=== PATIENT | male | born 1955 | race Caucasian/White ===

== ENCOUNTER 2019-04-07 09:02 | Inpatient (IN) | payer BC ==
[~2019-04-07] VITALS: Ht 182.9 cm; Wt 69.6 kg
[2019-04-07 09:36] LABS: BASOPHILS % 0.6 % (0.0-1.0); EOSINOPHILS # (AUTO) 0.1 (0.0-0.4); EOSINOPHILS % 1.3 % (0.0-6.0); HEMATOCRIT 41.2 % (38.2-49.6); HEMOGLOBIN 14.5 g/dL (14.0-18.0); LYMPHOCYTES # (AUTO) 3.1 (1.0-3.2); LYMPHOCYTES % 45.1 % (18.0-39.1); MEAN CORPUSCULAR HEMOGLOBIN 31.7 pg (28-32); MEAN CORPUSCULAR HGB CONC 35.2 g/dL (31-35); MONOCYTES # (AUTO) 0.5 (0.2-0.8); MONOCYTES % 7.1 % (4.4-11.3); NEUTROPHILS # (AUTO) 3.1 (2.1-6.9); NEUTROPHILS % 45.5 % (38.7-80.0); PLATELET COUNT 392 x10e3/uL (140-360); RED BLOOD COUNT 4.58 x10e6/uL (4.3-5.7); RED CELL DISTRIBUTION WIDTH 12.1 % (11.7-14.4)
[2019-04-07 09:45] LABS: INR 0.9; PARTIAL THROMBOPLASTIN TIME 29.3 seconds (23.8-35.5); PROTHROMBIN TIME 12.6 seconds (11.9-14.5)
[2019-04-07 09:53] LABS: ALANINE AMINOTRANSFERASE 37 IU/L (0-55); ALBUMIN 4.2 g/dL (3.5-5.0); ALBUMIN/GLOBULIN RATIO 1.4 (0.8-2.0); ALKALINE PHOSPHATASE 85 IU/L (40-150); BLOOD UREA NITROGEN 15 mg/dL (7-26); BUN/CREATININE RATIO 17 (6-25); CALCIUM 9.9 mg/dL (8.4-10.2); CARBON DIOXIDE 23 mmol/L (22-29); CHLORIDE 100 mmol/L (98-107); EST GLOMERULAR FILTRATION RATE > 60 ML/MIN (60-); GLUCOSE 107 mg/dL (74-118); SODIUM 133 mmol/L (136-145)
--- NOTE | 2019-04-07 10:02 | Diagnostic Imaging Report ---
History: Left arm paralysis Comparison studies: None Technique: Axial images were obtained from the skull base to the vertex. Coronal and sagittal reconstructions obtained from the axial data. Dose modulation, iterative reconstruction, and/or weight based adjustment of the mA/kV was utilized to reduce the radiation dose to as low as reasonably achievable. Intravenous contrast: None Findings: Scalp/skull: No abnormalities. No fractures, blastic or lytic lesions. Extra-axial spaces: No masses. No fluid collections. Brain sulci: Appropriate for age. Ventricles: Normal in size and configuration. No hydrocephalus. Parenchyma: Old less than 3 mm lacunar insults are centered in the right subinsular region (series 901, image 42) Otherwise, no abnormal densities, no masses, hemorrhage, acute or chronic cortical vascular insults. Sellar/suprasellar region: No abnormalities Craniocervical junction: Patent foramen magnum. No Chiari one malformation. Additional findings: Focal atherosclerotic calcifications in the carotid siphons, distal left vertebral and proximal basilar artery. IMPRESSION: 1. No acute intracranial abnormalities to explain patient's symptoms 2. Old right subinsular lacunar insults. 3. A brain MRI may be necessary for further evaluation if there is need for further imaging. Signed by: Dr. Gerard Geller M.D. on 04/07/2019 9:59 AM
--- NOTE | 2019-04-07 10:06 | Diagnostic Imaging Report ---
History: Left arm paralysis Comparison studies: None Technique: Axial images were obtained through the cervical region.. Coronal and sagittal images reconstructed from the axial data. Dose modulation, iterative reconstruction, and/or weight based adjustment of the mA/kV was utilized to reduce the radiation dose to as low as reasonably achievable. Intravenous contrast: None Findings: Fractures: None. Soft tissues: No gross abnormalities. Atlantoaxial articulation: Intact. Alignment: Normal lordosis. No scoliosis. Cervicomedullary junction: No abnormalities. The foramen magnum is patent. Vertebrae: No infection or neoplasm. Degenerative changes: The discs are normal in height from C2 through T1. Foraminal stenosis is moderate right at C3-4 due to uncoarthrosis, mild left at C4-5 due to moderate facet arthrosis, moderate right at C5-6 due to facet and uncoarthrosis Incidental atherosclerotic calcifications of the carotid bulbs. IMPRESSION: 1. No acute abnormalities. 2. Cannot adequately evaluate for ligament, spinal cord and or vascular abnormalities. 3. Degenerative foraminal stenosis from C3 through C6 as described Signed by: Dr. Gerard Geller M.D. on 04/07/2019 10:03 AM
--- NOTE | 2019-04-07 10:22 | NUR ---
MACKENZIE ANTONYCONCENTRATOR OPERATOR AWARE WE ARE REQUESTING MRI
[2019-04-07] MEDS ORDERED: DIPHENHYDRAMINE HCL INJ 50 MG/ML VIAL IV PRN (10:30)
[2019-04-07] MEDS ORDERED: HYDROCODONE/APAP 7.5MG-325MG 1 EA TAB PO PRN (10:30)
[2019-04-07] MEDS ORDERED: ONDANSETRON HCL INJ 2MG/ML 2ML 2 MG/ML VIAL IV PRN (10:30)
[2019-04-07] MEDS ORDERED: IBUPROFEN 200 MG TAB PO PRN (10:30)
[2019-04-07] MEDS ORDERED: ACETAMINOPHEN 325 MG TAB PO PRN (10:30)
--- NOTE | 2019-04-07 10:32 | NUR ---
DR. ARRINGTON AT BEDSIDE RE-EVALUATING PATIENT AND UPDATING HIM ON STATUS
--- NOTE | 2019-04-07 10:45 | NUR ---
DR. HUGGINS AWARE OF BP 160'S, NO MEDS ORDERED
--- NOTE | 2019-04-07 10:58 | NUR ---
HARPAL Griggs, CALLED AND MADE AWARE PATIENT IS GOING TO MRI BEFORE GOING TO HIS ROOM
[2019-04-07 12:32] VITALS: BP 181/90
[2019-04-07] MEDS ORDERED: IBUPROFEN 400 MG TAB PO PRN (12:45)
--- NOTE | 2019-04-07 13:50 | NUR ---
Recvd patient from ER after MRI, Patient resting in bed, AAOx3. Denies any pain, not in any distress
[2019-04-07] MEDS ORDERED: HYDRALAZINE HCL 20 MG/ML VIAL IV PRN (15:15)
[2019-04-07 16:00] VITALS: BP 142/90
--- NOTE | 2019-04-07 16:16 | NUR ---
Call recvd with new order from Dr Villarreal to cancel consult with Dr Greco
[2019-04-07 16:25] VITALS: BP 181/90
[2019-04-07] MEDS ORDERED: MOTRIN200 MG PO (16:50)
[2019-04-07] MEDS: FAMOTIDINE 20 MG/2 ML VIAL IV SCH (17:00)
[2019-04-07] MEDS: ENOXAPARIN SOD INJ 40 MG/0.4 ML SYR SC SCH (17:29)
--- NOTE | 2019-04-07 18:18 | NUR ---
patient ambulating in [address], denies any pain
--- NOTE | 2019-04-07 18:27 | Diagnostic Imaging Report ---
MRI BRAIN WO HISTORY: Left-sided weakness COMPARISON: Head CT 04/07/2019 TECHNIQUE: Sagittal T2, axial T2, axial T1, axial T2/FLAIR, axial gradient echo (or susceptibility weighted), coronal T2/FLAIR, and axial diffusion weighted MR images of the brain were obtained without contrast. Motion artifacts obscure some details. DISCUSSION: Scalp/bone marrow: Unremarkable. Brain sulci: Appropriate for patient's age. Ventricles: Normal in size and configuration. No hydrocephalus. Extra-axial spaces: No masses or fluid collections. Parenchyma: A small focus of diffusion restriction (bright on DWI, dark on ADC) in the right tucker radiata is compatible with acute ischemia. No other diffusion restricting abnormalities are seen. Scattered T2/FLAIR hyperintense foci throughout the supratentorial white matter are likely chronic microvascular ischemic changes. Otherwise, no mass or hemorrhage. Vessels: Normal flow voids in major arteries and veins. Sellar/Suprasellar region: No abnormalities. Craniocervical junction: No abnormalities. Incidental findings: None. IMPRESSION: 1. Small focal area of acute ischemia on the right tucker radiata. 2. Mild supratentorial chronic microvascular ischemic change. Signed by: Dr. Jeff Alex M.D. on 04/07/2019 6:24 PM
--- NOTE | 2019-04-07 18:35 | Diagnostic Imaging Report ---
MRI SPINE CERVICAL WO HISTORY: Left-sided weakness COMPARISON: Cervical spine CT 04/07/2019 TECHNIQUE: Sagittal T1, sagittal T2, sagittal inversion recovery, axial T2 and axial T1 weighted MR images of the cervical spine were obtained without intravenous contrast. DISCUSSION: Alignment: Normal lordosis. No scoliosis. Vertebrae: No definite evidence for fractures, infection, or neoplasm. Cervicomedullary junction: No abnormalities. Spinal cord: Normal in signal and morphology from the foramen magnum through T3-T4. Soft tissues: No signal abnormalities. Mild multilevel disc degeneration is present. C2-C3: Patent canal and foramina. C3-C4: Mild bilateral foraminal stenoses due to uncovertebral and facet arthrosis. No significant canal stenosis. C4-C5: Mild right and mild to moderate left foraminal stenoses due to uncovertebral and facet arthrosis. No significant canal stenosis. C5-C6: Mild canal stenosis due to posterior disc osteophyte complex and ligamentum flavum thickening. Moderate to severe right and mild left foraminal stenoses due to uncovertebral and facet arthrosis. C6-C7: Mild canal stenosis due to posterior disc osteophyte complex and ligamentum flavum thickening. Mild left foraminal stenosis due to uncovertebral and facet arthrosis. No significant right foraminal stenosis. C7-T1: Patent canal and foramina. IMPRESSION: 1. Mild multilevel disc degeneration. 2. Mild degenerative canal stenoses at C5-C6 and C6-C7. 3. Multilevel bilateral degenerative foraminal stenoses - moderate to severe on the right at C5-C6. Signed by: Dr. Jeff Alex M.D. on 04/07/2019 6:32 PM
--- NOTE | 2019-04-07 19:30 | NUR ---
Walking rounds done. Patient A&Ox4, respirations even & unlabored. Patient has left arm weakness. Denies any chest pain or SOB. Patient denies any needs at this time, call light within reach and bed set to lowest position.
[2019-04-07 20:00] VITALS: BP 135/96
[2019-04-07 20:33] VITALS: BP 181/90
--- NOTE | 2019-04-07 20:49 | Consultation ---
DATE OF CONSULTATION: 04/07/2019 Neurology Consult Note HISTORY OF PRESENT ILLNESS: The patient is a 63-year-old right-hand dominant man with known hyperlipidemia, admitted to [facility] on April 07, 2019 with left arm weakness. According to the patient, on the morning prior to admission, the patient was at home when he experienced the rather sudden onset of dizziness, which he further described as a vertiginous sensation, as well as tingling along the left hand and arm. Furthermore, Mr. Bird reports numbness in the tips of all fingers of the left hand. Concerned he was having a transient ischemic attack, the patient had his son drive him to a local pharmacy where his blood pressure was found to be in the 140s/90s mmHg. Rather than proceeding to the nearest emergency center for further evaluation, the patient returned home. Over the next 24 hours, he noted gradually worsening weakness as well as limited dexterity of the left hand and arm. On April 07, 2019, the patient presented to the emergency center at [facility] for further evaluation of his symptoms. Upon arrival in the emergency center, the patient was afebrile with a blood pressure of 161/93 mmHg and a pulse of 78 beats per minute. His neurological examination was significant for weakness of the left arm with strength documented as being approximately 2/5. No other focal deficits were noted. While in the emergency center, a CT of the brain without contrast was performed. There is no evidence of recent large territorial ischemia or hemorrhage. However, remote lacunar infarcts were observed in the right subinsular region. Mr. Bird was admitted to [facility] as an inpatient for further evaluation and treatment of his symptoms. The patient does not report neck pain or stiffness associated with the above symptoms. He does not report recent trauma or injury to the neck or left arm. The patient does not take anti-platelet or anticoagulant medication on a daily basis. REVIEW OF SYSTEMS: Weakness of the left hand and arm, numbness and tingling of the left hand and arm, neck and low back stiffness (chronic). PAST MEDICAL HISTORY: Hyperlipidemia, cervical spine injury several years ago, multiple broken bones related to trauma. PAST SURGICAL HISTORY: A plate was placed in the patient's right forearm to repair an ulnar fracture. PAST HOSPITALIZATIONS: Surgeries/procedures as listed. FAMILY MEDICAL HISTORY: The patient's paternal grandmother from bone cancer. His father is alive and has valvular heart disease. The patient's mother is alive. She has breast cancer with metastatic lesions to the bones and brain. Mr. Bird has 1 sibling, a sister, who is alive. She is a breast cancer survivor. The patient has two adopted children. SOCIAL HISTORY: The patient is . He lives with his , two children, and three grand children. The patient works as a pharmacist at [employer]. The patient reports using smokeless tobacco daily. There is no reported current or prior alcohol or recreational drug use. HOME MEDICATIONS: Afrin nasal spray as needed, ibuprofen as needed, Fioricet as needed. HOSPITAL MEDICATIONS: Tylenol, Benadryl, Lovenox, Pepcid, [place], Motrin, Zofran. ALLERGIES: PENICILLIN. NO KNOWN FOOD ALLERGIES. THE PATIENT DOES REPORT A LATEX ALLERGY. NO ALLERGIES TO IODINE OR OTHER CONTRAST MATERIALS. VITAL SIGNS: Height 72 inches, weight 154 pounds, BMI 20.9 kg/m2, blood pressure 181/90 mmHg, pulse 57 beats per minute, respiratory rate 18 breaths per minute, and oxygen saturation 98% on room air. GENERAL: The patient is awake and alert, does not appear distressed. HEENT: Normocephalic, atraumatic. Pupils are equal, round, and reactive to light. Moist mucous membranes. NECK: Supple. No appreciable thyromegaly. No appreciable carotid bruits. CARDIOVASCULAR: S1, S2, regular rate and rhythm. No murmurs, rubs, or gallops. RESPIRATORY: Clear to auscultation bilaterally. No wheezes, rhonchi, or rales. EXTREMITIES: The skin is warm and dry. No clubbing, cyanosis, or edema. The posterior tibial and dorsalis pedis pulses are 2+ and symmetric. SKIN: No rashes or lesions. NEUROLOGIC: Memory/Attention: The patient is awake and alert, oriented to person, place, time, and situation. Cranial Nerves: Cranial nerve I - not tested. Cranial nerve II, III, IV, and - pupils are equal and round, reactive briskly to light (from 4 mm to 2 mm). Extraocular movements intact. No nystagmus. Cranial nerve V - sensation to light touch and pinprick is intact in the bilateral V1 through V3 distributions. Strength in the temporalis and masseter muscles are within normal limits. Cranial nerve VII - the face is symmetric as are all facial movements. Strength is within normal limits. Cranial nerve VIII - hearing is intact to finger rub bilaterally. Cranial nerve XI, X - the soft palate elevates equally and symmetrically. Cranial nerve XI - normal strength of the bilateral sternocleidomastoid and trapezius muscles. Cranial nerve XII - the tongue protrudes midline and moves symmetrically from [id number]. Strength: Bulk is normal. Strength is 5/5 in the bilateral deltoids, biceps, triceps, wrist flexors and extensors, finger flexors and extensors, intrinsic hand muscles, hip flexors, knee flexors and extensors, ankle dorsiflexion and plantar flexion, and intrinsic foot muscles except as follows: There is flaccid paresis in all muscles of the left arm. Strength is grossly 1 to 2/5. Tone is normal in the other 3 extremities. DTRs: Deep tendon reflexes are 2+ and symmetric at the triceps, biceps, brachioradialis, patellas, and Achilles. Plantar responses are flexor bilaterally. Sensation: Sensation is mildly diminished to light touch and pinprick over the left arm. Cerebellar: Fyxtyy-jbwd-byohdv and heel-doyle movements are intact without dysmetria or other impairment except as follows: Cerebellar function cannot be assessed in the left arm due to weakness. Gait: Deferred. Speech: Spontaneous speech is normal without appreciable dysarthria or aphasia. Repetition is intact. Involuntary movements: None. Pronator drift: As per motor exam. LABORATORY DATA: Comprehensive metabolic panel is significant only for a mildly decreased sodium of 133. The CBC with differential and platelets reveals white blood cell count of 6.89 with a right shift with 45.5% neutrophils, 45.1% lymphocytes, 7.1% monocytes, 1.3% eosinophils, and 0.6% basophils. The hemoglobin and hematocrit are 14.5 and 41.2, respectively. The platelet count is 392. A coagulation profile is within normal limits. DIAGNOSTIC STUDIES: Electrocardiogram, 04/07/2019: Normal sinus rhythm at 60 beats per minute. Possible left ventricular hypertrophy. CT of the brain, 04/07/2019: On my review, there is no evidence of recent large territorial ischemia or hemorrhage. Lacunar insults are seen in the right subinsular region. Cerebral volumes are appropriate for age. There are findings compatible with mild chronic small-vessel ischemic disease. MRI of the brain without contrast, 04/07/2019: A formal report is pending. On my review, there is acute ischemia in the subcortical right middle cerebral artery distribution, probably along the posterior limb of the internal capsule. Cerebral volumes are appropriate for age. There are findings compatible with mild chronic small vessel ischemic disease. MRI of the cervical spine without contrast, 04/07/2019: On my review, there is multilevel degenerative disk disease without significant spinal canal or neuroforaminal stenosis. ASSESSMENT AND PLAN: Mr. Bird is a 63-year-old right-hand dominant man with past medical history significant for hyperlipidemia, who presented to the emergency center at [facility] on the morning of April 07, 2019 with subacute weakness and sensory disturbance over the left hand and arm secondary to a lacunar stroke in the subcortical right middle cerebral artery distribution. The patient's neurological examination is significant for [id number] weakness of the muscles in the left hand and arm as well as mild sensory loss in the left hand and arm. The patient's laboratory data and other diagnostic studies have been reviewed and are documented above. RECOMMENDATIONS: Are as follows: 1. A lipid panel and hemoglobin A1c will be ordered. 2. Bilateral carotid artery ultrasound with Doppler will be ordered. 3. An echocardiogram will be ordered. 4. Aspirin 325 mg by mouth daily for stroke prophylaxis will be prescribed. 5. Allow permissive hypertension for 24-48 hours post stroke. P.r.n. hydralazine will be ordered. Physicians may begin to normalize the blood pressure on April 08, 2019. 6. The goal total cholesterol is less than 200 with an LDL of less than 70. Follow up the results of the lipid panel and prescribe statin as appropriate. 7. A goal hemoglobin A1c is less than 7.0. Follow up the results of the hemoglobin A1c. Tight glycemic control is recommended while the patient is hospitalized. 8. Physical therapy consultation will be ordered. 9. GI prophylaxis with Pepcid 20 mg by mouth twice daily with meals. Deep venous thrombosis prophylaxis with Lovenox 40 mg subcutaneously daily. 10. Defer treatment of the remaining medical comorbidities to the primary and other services following the patient. Thank you for this consultation. I will continue to follow the patient while he remains in the hospital. TIME SPENT: 70 minutes. Bhakti Villarreal MD CP/CONNIE /[id number] MTDOdilia
[2019-04-08] VITALS (8 sets, daily range): BP systolic 142–178; BP diastolic 83–105
[2019-04-08 06:38] LABS: CHOL/HDL RATIO 4.5 (3.9-4.7)
--- NOTE | 2019-04-08 07:08 | NUR ---
RECEIVED PATIENT RESTING IN BED. RESPIRATIONS EVEN AND UNLABORED, NO ACUTE DISTRESS NOTED. PATIENT DENIES PAIN OR DISCOMFORT. CALL LIGHT WITHIN REACH. BED IN THE LOWEST POSITION.
[2019-04-08] MEDS: FAMOTIDINE 20 MG/2 ML VIAL IV SCH (08:13)
[2019-04-08] MEDS ORDERED: ASPIRIN 325 MG TAB EC PO SCH (09:00)
[2019-04-08] MEDS ORDERED: ONDANSETRON HCL 4 MG ORAL DISINTEGRATING TAB PO PRN (10:00)
[2019-04-08] MEDS ORDERED: FAMOTIDINE 20 MG TAB PO SCH (16:30)
[2019-04-08] MEDS: ENOXAPARIN SOD INJ 40 MG/0.4 ML SYR SC SCH (16:33)
--- NOTE | 2019-04-08 19:14 | NUR ---
REPORT GIVEN TO ONCOMING NURSE. WALKING ROUNDS DONE. PATIENT IS RESTING IN BED. CALL LIGHT WITHIN REACH. BED IN THE LOWEST POSITION.
--- NOTE | 2019-04-08 19:35 | NUR ---
PT IS RESTING IN BED. NO RESPIRATORY DISTRESS NOTED. BED IN THE LOWEST POSITION, LOCKED, AND CALL LIGHT WITHIN REACH. WILL CONTINUE TO MONITOR.
[2019-04-08] MEDS ORDERED: ATORVASTATIN CA20 MG PO (20:16)
[2019-04-08] MEDS ORDERED: LISINOPRIL10 MG PO (20:17)
[2019-04-08] MEDS ORDERED: ASPIRIN325 MG PO (20:18)
--- NOTE | 2019-04-08 20:29 | NUR ---
PT WAS WHEELED OF THE UNIT WITH ALL OF HIS BELONGS. NO RESPIRATORY DISTRESS NOTED. PT EDUCATED ON MEDICATION COMPLIANCE AND DISCHARGE INSTRUCTIONS. PER PT DISCHARGE INSTRUCTION UNDERSTOOD.
== END 2019-04-08 20:29 | disposition home or self-care (01) | DRG 66 ==
LOC: ER 09:02 → ERHOLD 10:20 → MED/SURG3 12:30
DX: I63.9 Cerebral infarction, unspecified (principal); I10 Essential (primary) hypertension; E78.5 Hyperlipidemia, unspecified; M54.5 Low back pain
CPT/HCPCS: 36415; 70450; 70551; 72125; 72141; 80053; 80061; 83036; 85025; 85610; 85730; 93005; 93306; 93880; 96372; 99284; J1650

== ENCOUNTER 2019-04-25 14:00 | Outpatient (RCR) | payer BC ==
[~2019-04-25 14:00] MED LIST: ASPIRIN325 MG PO; ATORVASTATIN CA20 MG PO; LISINOPRIL10 MG PO; MOTRIN200 MG PO
== END 2019-04-26 ==
LOC: OT 14:00
PROVIDERS: ATTEND Psychiatry & Neurology Clinical Neurophysiology
DX: R53.1 Weakness (principal); R27.9 Unspecified lack of coordination

== ENCOUNTER 2019-05-23 14:00 | Outpatient (RCR) | payer BC | END 2019-05-26 | LOC: OT 14:00 | PROVIDERS: ATTEND Psychiatry & Neurology Clinical Neurophysiology | DX: I69.834 Monoplegia of upper limb following other cerebrovascular disease affecting left non-dominant side (principal); R53.1 Weakness; R27.9 Unspecified lack of coordination ==

== ENCOUNTER 2019-06-13 16:00 | Outpatient (RCR) | payer BC | END 2019-06-26 | LOC: OT 16:00 | PROVIDERS: ATTEND Psychiatry & Neurology Clinical Neurophysiology | DX: I69.834 Monoplegia of upper limb following other cerebrovascular disease affecting left non-dominant side (principal); R53.1 Weakness; R27.9 Unspecified lack of coordination | CPT/HCPCS: 97139 ==

== ENCOUNTER → 2020-11-24 | Outpatient (CLI) | payer OTHER ==
[~2020-11-24] MED LIST changes: +COVID-19 VACC, MRNA(MODERNA)/PF 100 MCG/0.5 ML VIAL IM ONE
== END ==
LOC: VACCPMC 13:42
DX: Z23 Encounter for immunization (principal); Z20.828 Contact with and (suspected) exposure to other viral communicable diseases

== ENCOUNTER → 2020-12-29 | Outpatient (CLI) | payer OTHER | LOC: VACCPMC 10:38 | DX: Z23 Encounter for immunization (principal); Z20.822 Contact with and (suspected) exposure to COVID-19 | CPT/HCPCS: 0012A; 91301 ==

== ENCOUNTER → 2021-02-03 | Outpatient (CLI) | payer OTHER ==
[~2021-02-03] MED LIST changes: -COVID-19 VACC, MRNA(MODERNA)/PF 100 MCG/0.5 ML VIAL IM ONE
== END ==
LOC: MRI 10:52
PROVIDERS: ATTEND Specialist
DX: S83.222A Peripheral tear of medial meniscus, current injury, left knee, initial encounter (principal); M17.12 Unilateral primary osteoarthritis, left knee

== ENCOUNTER → 2021-02-24 | Day surgery (SDC) | payer OTHER ==
[~2021-02-24] MED LIST changes: +ASPIRIN81 MG PO; +ATROPINE SULFATE 1 MG/ML VIAL ONE; +BUPIVACAINE HCL 0.5% INJ 30 ML VIAL INJ ONE; +CEFAZOLIN SOD 1 GM/NS 50ML 100 ML IV ONE; +DEXAMETHASONE SOD PHOS INJ 4 MG/ML VIAL ONE; +EPHEDRINE SULFATE INJ 50 MG/ML VIAL ONE; +FENTANYL CITRATE/PF 100MCG/2 ML INJ ONE; +IBUPROFEN 800MG/ 200ML 200 ML IV ONE; +LIDOCAINE HCL 2% LOCAL INJ 5 ML SDV VIAL INJ ONE; +MEPERIDINE HCL INJ 25 MG/ML VIAL ONE; +MIDAZOLAM HCL 2 MG/2 ML VIAL ONE; +ONDANSETRON HCL INJ 2MG/ML 2ML 2 MG/ML VIAL ONE; +PROPOFOL IV EMULSION 10 MG/ML 20 ML VIAL ONE; +SEVOFLURANE INHAL SOLN 250 ML PEN BTL ONE
[2021-02-24 09:25] VITALS: BP 144/88
== END | disposition home or self-care (01) ==
LOC: OR 05:46
PROVIDERS: ATTEND Specialist
DX: S83.222A Peripheral tear of medial meniscus, current injury, left knee, initial encounter (principal); M17.12 Unilateral primary osteoarthritis, left knee; M22.42 Chondromalacia patellae, left knee; M71.22 Synovial cyst of popliteal space [Baker], left knee; I10 Essential (primary) hypertension; I69.334 Monoplegia of upper limb following cerebral infarction affecting left non-dominant side; E78.5 Hyperlipidemia, unspecified; X58.XXXA Exposure to other specified factors, initial encounter; Z88.0 Allergy status to penicillin; Z01.810 Encounter for preprocedural cardiovascular examination; Z01.812 Encounter for preprocedural laboratory examination; Z20.822 Contact with and (suspected) exposure to COVID-19; Z79.82 Long term (current) use of aspirin
CPT/HCPCS: 29881; 93005; J0461; J0690; J1100; J2001; J2175; J2250; J2405; J2704; J3010; U0002

== ENCOUNTER 2021-09-24 10:00 | Outpatient (RCR) | payer OTHER ==
[~2021-09-24 10:00] MED LIST changes: -ATROPINE SULFATE 1 MG/ML VIAL ONE; -BUPIVACAINE HCL 0.5% INJ 30 ML VIAL INJ ONE; -CEFAZOLIN SOD 1 GM/NS 50ML 100 ML IV ONE; -DEXAMETHASONE SOD PHOS INJ 4 MG/ML VIAL ONE; -EPHEDRINE SULFATE INJ 50 MG/ML VIAL ONE; -FENTANYL CITRATE/PF 100MCG/2 ML INJ ONE; -IBUPROFEN 800MG/ 200ML 200 ML IV ONE; -LIDOCAINE HCL 2% LOCAL INJ 5 ML SDV VIAL INJ ONE; -MEPERIDINE HCL INJ 25 MG/ML VIAL ONE; -MIDAZOLAM HCL 2 MG/2 ML VIAL ONE; -ONDANSETRON HCL INJ 2MG/ML 2ML 2 MG/ML VIAL ONE; -PROPOFOL IV EMULSION 10 MG/ML 20 ML VIAL ONE; -SEVOFLURANE INHAL SOLN 250 ML PEN BTL ONE
== END 2021-09-26 ==
LOC: PT 10:00
PROVIDERS: ATTEND Specialist
DX: M17.12 Unilateral primary osteoarthritis, left knee (principal)

== ENCOUNTER 2022-01-06 08:57 | Inpatient (IN) | payer BC, OTHER ==
[~2022-01-06] VITALS: Ht 182.9 cm; Wt 69.2 kg
[2022-01-06] MEDS ORDERED: SODIUM CHLORIDE 0.9% 1000ML 1,000 ML IV STA (09:16)
[2022-01-06 09:45] LABS: BASOPHILS # (AUTO) 0.1 (0.0-0.1); BASOPHILS % 1.3 % (0.0-1.0); EOSINOPHILS # (AUTO) 0.1 (0.0-0.4); EOSINOPHILS % 2.3 % (0.0-6.0); HEMATOCRIT 37.8 % (38.2-49.6); HEMOGLOBIN 12.2 g/dL (14.0-18.0); LYMPHOCYTES # (AUTO) 2.2 (1.0-3.2); LYMPHOCYTES % 47.5 % (18.0-39.1); MEAN CORPUSCULAR HEMOGLOBIN 30.8 pg (28-32); MEAN CORPUSCULAR HGB CONC 32.3 g/dL (31-35); MEAN CORPUSCULAR VOLUME 95.5 fL (81-99); MONOCYTES # (AUTO) 0.5 (0.2-0.8); MONOCYTES % 9.5 % (4.4-11.3); NEUTROPHILS # (AUTO) 1.9 (2.1-6.9); NEUTROPHILS % 39.2 % (38.7-80.0); PLATELET COUNT 326 x10e3/uL (140-360); RED BLOOD COUNT 3.96 x10e6/uL (4.3-5.7); RED CELL DISTRIBUTION WIDTH 12.9 % (11.7-14.4)
[2022-01-06 10:04] LABS: ALBUMIN/GLOBULIN RATIO 1.5 (0.8-2.0); ANION GAP 13.1 mmol/L (8-16); CALCIUM 8.8 mg/dL (8.4-10.2); CREATININE, SERUM 0.83 mg/dL (0.72-1.25); POTASSIUM 4.1 mmol/L (3.5-5.1)
[2022-01-06 10:11] LABS: CREATINE KINASE MB 1.8 ng/mL (0-5.0)
[2022-01-06] MEDS ORDERED: HYDRALAZINE HCL 20 MG/ML VIAL IV STA (10:36)
[2022-01-06] MEDS ORDERED: HYDRALAZINE HCL 20 MG/ML VIAL IV PRN (11:30)
[2022-01-06] MEDS ORDERED: SODIUM CHLORIDE 0.9% 1000ML 1,000 ML IV SCH (11:30)
[2022-01-06 13:00] VITALS: BP 159/95
[2022-01-06] MEDS ORDERED: ONDANSETRON HCL INJ 2MG/ML 2ML 2 MG/ML VIAL IV PRN (14:15)
[2022-01-06] MEDS ORDERED: DOCUSATE SODIUM 100 MG CAP PO PRN (14:15)
[2022-01-06] MEDS ORDERED: ACETAMINOPHEN 325 MG TAB PO PRN (14:15)
[2022-01-06] MEDS: HYDROCHLOROTHIAZIDE 25 MG TAB PO SCH (14:37)
[2022-01-06 16:27] VITALS: BP 141/74
[2022-01-06] MEDS: LISINOPRIL 10 MG TAB PO SCH (17:15)
[2022-01-06 18:12] LABS: CREATINE KINASE MB 2.3 ng/mL (0-5.0)
[2022-01-06] MEDS ORDERED: ATORVASTATIN 40 MG TAB PO SCH (21:00)
[2022-01-06 21:51] VITALS: BP 163/96
[2022-01-06] MEDS: METOPROLOL TARTRATE 25 MG TAB PO SCH (22:32)
[2022-01-07] VITALS: BP 129/73
[2022-01-07 04:00] VITALS: BP 156/92
[2022-01-07 05:58] LABS: BASOPHILS % 0.6 % (0.0-1.0); EOSINOPHILS # (AUTO) 0.1 (0.0-0.4); HEMATOCRIT 39.8 % (38.2-49.6); HEMOGLOBIN 13.2 g/dL (14.0-18.0); LYMPHOCYTES # (AUTO) 2.6 (1.0-3.2); MEAN CORPUSCULAR HEMOGLOBIN 31.5 pg (28-32); MEAN CORPUSCULAR HGB CONC 33.2 g/dL (31-35); MONOCYTES # (AUTO) 0.5 (0.2-0.8); MONOCYTES % 7.2 % (4.4-11.3); NEUTROPHILS # (AUTO) 3.4 (2.1-6.9); NEUTROPHILS % 50.9 % (38.7-80.0); PLATELET COUNT 329 x10e3/uL (140-360); RED BLOOD COUNT 4.19 x10e6/uL (4.3-5.7); RED CELL DISTRIBUTION WIDTH 12.6 % (11.7-14.4)
[2022-01-07 06:25] LABS: ALBUMIN 3.9 g/dL (3.5-5.0); ALBUMIN/GLOBULIN RATIO 1.3 (0.8-2.0); ANION GAP 15.1 mmol/L (8-16); CREATININE, SERUM 0.91 mg/dL (0.72-1.25); POTASSIUM 4.1 mmol/L (3.5-5.1)
[2022-01-07 06:32] LABS: CREATINE KINASE MB 2.4 ng/mL (0-5.0)
[2022-01-07 06:43] LABS: CHOL/HDL RATIO 5.2 (3.9-4.7)
[2022-01-07] MEDS ORDERED: LOPRESSOR25 MG PO (07:19)
[2022-01-07] MEDS ORDERED: ESIDRIX25 MG PO (07:19)
[2022-01-07] MEDS ORDERED: Atorvastatin PO (07:19)
[2022-01-07 08:00] VITALS: BP 170/92
[2022-01-07] MEDS ORDERED: ONDANSETRON HCL 4 MG ORAL DISINTEGRATING TAB PO PRN (08:15)
[2022-01-07] MEDS: HYDROCHLOROTHIAZIDE 25 MG TAB PO SCH (08:45)
[2022-01-07] MEDS: LISINOPRIL 10 MG TAB PO SCH (08:50)
[2022-01-07] MEDS: METOPROLOL TARTRATE 25 MG TAB PO SCH (08:50)
[2022-01-07] MEDS ORDERED: ENOXAPARIN SOD INJ 40 MG/0.4 ML SYR SC SCH (09:00)
[2022-01-07] MEDS ORDERED: ASPIRIN 81 MG CHEW TAB PO SCH (09:00)
[2022-01-07] MEDS ORDERED: ATORVASTATIN 40 MG TAB PO SCH (21:00)
== END 2022-01-07 11:01 | disposition home or self-care (01) | DRG 69 ==
LOC: ER 09:06 → ERHOLD 11:20 → MED/SURG 12:32
PROVIDERS: ADMIT Internal Medicine; ATTEND Internal Medicine
DX: G45.9 Transient cerebral ischemic attack, unspecified (principal); I16.1 Hypertensive emergency; I10 Essential (primary) hypertension; E78.5 Hyperlipidemia, unspecified; Z86.73 Personal history of transient ischemic attack (TIA), and cerebral infarction without residual deficits; Z20.822 Contact with and (suspected) exposure to COVID-19
CPT/HCPCS: 36415; 70551; 71045; 80053; 80061; 82550; 82553; 83880; 84484; 85025; 93005; 93306; 94799; 99284; J0360; J7030; U0002